=== PATIENT | male | born 1990 | race Caucasian/White ===

== ENCOUNTER 2017-02-02 15:50 | Emergency (ER) | payer OTHER ==
[~2017-02-02 15:50] MED LIST: IBUPROFEN800 MG PO; VICODIN 5/1 TAB 5/50 PO
[2017-02-02 17:38] LABS: INFLUENZA A NEG (NEG); INFLUENZA B POS (NEG)
== END 2017-02-02 17:45 | disposition home or self-care (01) ==
LOC: CFTX 15:50
PROVIDERS: Physician Assistant
DX: J10.1 Influenza due to other identified influenza virus with other respiratory manifestations (principal); F17.200 Nicotine dependence, unspecified, uncomplicated
CPT/HCPCS: 87804; 99283